=== PATIENT | female | born 1965 | race African-American/Black ===

== ENCOUNTER 2020-02-07 15:23 | Outpatient (CLI) | payer OTHER, MEDICAID, SELFPAY ==
[2020-02-07 17:06] LABS: CRP 1.2 mg/dL (<1.0)
[2020-02-07 18:55] LABS: Erythrocyte Sedimentation Rate 21 mm/hr (0-20)
[2020-02-10 09:57] LABS: Histone Antibody 1.9 U (<1.0)
[2020-02-10 23:07] LABS: Chromatin Antibody <1.0; SS-A <1.0; SS-B <1.0
[2020-02-11 09:23] LABS: Anti Cyclic Citrullinated Pept <16 Units (<20)
[2020-02-12 10:43] LABS: SM Antibody <1.0; SM/RNP Antibody <1.0
== END 2020-02-07 15:24 | disposition home or self-care (01) ==
PROVIDERS: PCP Student in an Organized Health Care Education/Training Program; Visit Provider Student in an Organized Health Care Education/Training Program
DX: M25.50 Pain in unspecified joint (principal)
CPT/HCPCS: 36415; 83516; 85652; 86038; 86140; 86200; 86235